=== PATIENT | male | born 2000 | race Hispanic/Latino ===

== ENCOUNTER 2019-11-29 15:17 | Emergency (ER) | payer SELFPAY ==
[~2019-11-29] VITALS: Ht 167.6 cm; Wt 113.4 kg
--- NOTE | 2019-11-29 18:12 | Diagnostic Imaging Report ---
EXAMINATION: PA and lateral views of the chest. COMPARISON: None CLINICAL HISTORY: Cough and weakness for 5 days DISCUSSION: Lines/tubes: None. Lungs: The lungs are mildly hypoinflated but grossly clear. There is no evidence of pneumonia or pulmonary edema. Pleura: There is no pleural effusion or pneumothorax. Heart and mediastinum: Cardiomediastinal silhouette is unremarkable. Pulmonary vasculature is normal. Bones and soft tissues: No acute bony abnormalities. IMPRESSION: No acute cardiopulmonary abnormalities. Signed by: Dr. Cristhian Vega M.D. on 11/29/2019 6:09 PM
--- NOTE | 2019-11-29 18:51 | Emergency Department Note ---
History of Present Illnes History of Present Illness Chief Complaint: General Medicine Complaints History of Present Illness This is a 19 year old male arrives to the ED with complaints of feeling weak, patient unable to explain why he is in the ED states he just didn't feel right and thinks he might have Coban 19.. Historian: Patient Arrival Mode: Car Onset (how long ago): hour(s) Severity: mild Onset quality: gradual Duration (how long): day(s) Timing of current episode: intermittent Progression: waxing and waning Chronicity: new Context: Denies recent illness, Denies recent surgery Relieving factors: none Associated symptoms: Denies chest pain, Denies cough, Denies diaphoresis, Denies fever/chills, Denies headaches, Denies loss of appetite, Denies malaise, Denies nausea/vomiting Past Medical/Family History Physician Review I have reviewed the patient's past medical and family history. Any updates have been documented here. Past Medical History Recent Fever: No Clinical Suspicion of Infectio: No New/Unexplained Change in Ment: No Past Medical History: None Past Surgical History: None Social History Smoking Cessation: Never Smoker Counseling Performed: No Alcohol Use: Occasional Any Illegal Drug Use: No TB Exposure/Symptoms: No Physically hurt or threatened: No Other Last Tetanus: utd Any Pre-Existing Lines (PICC,: No Is patient up to date on immun: Yes Last Flu: ood Last Pneumovax: ood Review of Systems Review of Systems Constitutional: Reports as per HPI EENTM: Reports no symptoms Cardiovascular: Reports no symptoms Respiratory: Reports no symptoms Gastrointestinal: Reports no symptoms Genitourinary: Reports no symptoms Musculoskeletal: Reports no symptoms Integumentary: Reports no symptoms Neurological: Reports no symptoms Psychological: Reports no symptoms Endocrine: Reports no symptoms Hematological/Lymphatic: Reports no symptoms Physical Exam Related Data Allergies: Coded Allergies: No Known Allergies (Unverified , 11/29/19) Triage Vital Signs Vital Signs Date Time Temp Pulse Resp B/P (MAP) Pulse Ox O2 Delivery O2 Flow Rate FiO2 11/29/19 16:11 98.8 88 18 171/96 100 Vital signs reviewed: Yes Physical Exam CONSTITUTIONAL Constitutional: Present well-developed, Present well-nourished HENT HENT: Present normocephalic, Present atraumatic, Present oropharynx pepe r/moist, Present nose normal HENT L/R: Present left ext ear normal, Present right ext ear normal EYES Eyes: Reports PERRL, Reports conjunctivae normal NECK Neck: Present ROM normal PULMONARY Pulmonary: Present effort normal, Present breath sounds normal CARDIOVASCULAR Cardiovascular: Present regular rhythm, Present heart sounds normal, Present capillary refill normal, Present normal rate GASTROINTESTINAL Abdominal: Present soft, Present nontender, Present bowel sounds normal GENITOURINARY Genitourinary: Present exam deferred SKIN Skin: Present warm, Present dry MUSCULOSKELETAL Musculoskeletal: Present ROM normal NEUROLOGICAL Neurological: Present alert, Present oriented x 3, Present no gross motor or sensory deficits PSYCHOLOGICAL Psychological: Present mood/affect normal, Present judgement normal Results Laboratory Laboratory Laboratory Tests Test 11/29/19 17:53 Imaging Imaging results reviewed: Yes Assessment & Plan Medical Decision Making MDM 19-year-old male arrives to the ED with nonspecific complaints. Patient nontoxic well-appearing with normal vital signs. Patient states he doesn't know why he is in the emergency department but states he just didn't feel right. Patient no focal neurological deficits. Patient awake alert oriented 3. Patient's chest x- ray was done and the ED because he brought up some concerns of Coban 19 was normal. A Covid swab was sent Assessment & Plan Final Impression: (1) Weak Depart Disposition: HOME, SELF-CARE Last Vital Signs Date Time Temp Pulse Resp B/P (MAP) Pulse Ox O2 Delivery O2 Flow Rate FiO2 11/29/19 16:11 98.8 88 18 171/96 100 MERY ALCALA DO Nov 29, 2019 18:34
== END 2019-11-29 18:37 | disposition home or self-care (01) ==
LOC: ER 15:17
DX: R53.1 Weakness (principal); U07.1 COVID-19
CPT/HCPCS: 71046; 87635; 99282